=== PATIENT | male | born 1965 | race Caucasian/White ===

== ENCOUNTER 2016-07-07 23:03 | Emergency (ER) | payer OTHER ==
[~2016-07-07] VITALS: Ht 182.9 cm; Wt 172.4 kg
--- NOTE | 2016-07-07 23:10 | NUR ---
Patient to ER bed 3 to gown for evaluation. Side rails up. Report given to URIAH LAMBERT.
--- NOTE | 2016-07-07 23:15 | NUR ---
Pt presents to ED with c/o neck and R shoulder pain 01/03, started this morning, unknown cause, pt denies any injury. A&Ox4, gait stable, ambulatory, denies SOb or chestpain, denies N/V/D, Skin intact, will continue to monitor
[2016-07-07 23:25] VITALS: BP 138/99; PULSE 87; RESP 14; TEMP 98.7; O2SAT 97
--- NOTE | 2016-07-08 00:05 | NUR ---
at bedside examining pt
[2016-07-08] MEDS ORDERED: KETOROLAC TROMETHAMINE 60 MG/2 ML VIAL IM ONE (00:15)
[2016-07-08] MEDS ORDERED: DIAZEPAM 10 MG/2 ML DISP.SYRIN IM ONE (00:15)
--- NOTE | 2016-07-08 00:43 | NUR ---
Patient given written and verbal discharge instructions and verbalizes understanding. ER MD Crook discussed with patient the results and treatment provided. Patient in stable condition. ID arm band removed. Rx of valium, motrin, and norco given. Patient educated on pain management and to follow up with PMD. Pain Scale 0/10 Opportunity for questions provided and answered.
[2016-07-08 00:44] VITALS: BP 137/96; PULSE 88; RESP 14; TEMP 98.3; O2SAT 97
== END 2016-07-08 00:44 | disposition home or self-care (01) ==
LOC: SED 23:03
DX: M54.2 Cervicalgia (principal); M25.511 Pain in right shoulder
CPT/HCPCS: 96372; 99284; J1885; J3360